=== PATIENT | female | born 1935 | race Caucasian/White ===

== ENCOUNTER → 2018-04-22 | Outpatient (CLI) | payer MEDICARE, OTHER ==
[~2018-04-22] MED LIST: FISH OIL; VITAMIN D; Z.0.DIOVAN HCT 80-1 PO; Z.0.ULTRAM50 MG PO; [UNRECOGNIZED DRUG - OTHER] GT; [UNRECOGNIZED DRUG - OTHER] PO
== END ==
LOC: RAD 13:00
PROVIDERS: ATTEND Family Medicine
DX: I48.91 Unspecified atrial fibrillation (principal)
CPT/HCPCS: 93306